=== PATIENT | male | born 1980 | race Caucasian/White ===

== ENCOUNTER 2020-04-25 21:53 | Emergency (ER) | payer SELFPAY ==
[~2020-04-25] VITALS: Ht 175.3 cm; Wt 95.3 kg
--- NOTE | 2020-04-25 21:55 | NUR ---
MD OLEA AT BEDSIDE
--- NOTE | 2020-04-25 22:01 | NUR ---
Note ian in [facility] - 04/25/20 at 2202 by JORJE ambulated to bed 67 with steady gait Addendum: 04/25/20 at 2201 by JORJE Sergio sosa in [facility] - 04/25/20 at 2202 by JORJE bed 7
--- NOTE | 2020-04-25 22:02 | NUR ---
ambulated to bed 2
[2020-04-25 22:08] VITALS: BP 132/76
--- NOTE | 2020-04-25 22:24 | NUR ---
PT WAS SEEN AND DX AT [facility] 2 MONTHS AGO WITH GENITAL WARTS ON HIS PENIS. HE WAS GIVEN CREAM AND THEY WENT AWAY BUT HE DEVELOPED 1 WART ON HIS PENIS 1 WEEK AGO. DENIES DISCHARGE, ITCHING, BLEEDING, AND STATES ONLY HAS PAIN WITH INTERCOURSE. PT STATES HIS SEXUAL PARTNER HAS NEVER BEEN EVALUTED FOR GENITAL WARTS BUT CLAIMS SHE HAS NO SYMPTOMS. BED IN LOWEST POSITION AND SIDERAIL UP X 1 NKA HX - ANXIETY, HTN
[2020-04-25 22:43] VITALS: BP 132/76
--- NOTE | 2020-04-25 22:44 | NUR ---
Patient discharged with v/s stable. Written and verbal after care instructions given and explained. Patient alert, oriented and verbalized understanding of instructions. Ambulatory with steady gait. All questions addressed prior to discharge. ID band removed. Patient advised to follow up with PMD. Rx of ACYCLOVIR given. Patient educated on indication of medication including possible reaction and side effects. Opportunity to ask questions provided and answered.
== END 2020-04-25 22:43 | disposition home or self-care (01) ==
LOC: MED 21:53
DX: N48.89 Other specified disorders of penis (principal); F41.9 Anxiety disorder, unspecified; I10 Essential (primary) hypertension
CPT/HCPCS: 99283

== ENCOUNTER 2020-05-06 10:28 | Emergency (ER) | payer SELFPAY ==
[~2020-05-06] VITALS: Ht 175.3 cm; Wt 95.3 kg
[2020-05-06 10:32] VITALS: BP 150/102
[2020-05-06 11:14] VITALS: BP 148/98
== END 2020-05-06 11:14 | disposition home or self-care (01) ==
LOC: MED 10:28
DX: R20.2 Paresthesia of skin (principal); F10.10 Alcohol abuse, uncomplicated; F41.9 Anxiety disorder, unspecified; I10 Essential (primary) hypertension
CPT/HCPCS: 99283